=== PATIENT | female | born 1970 | race Caucasian/White ===

== ENCOUNTER → 2025-01-23 | Outpatient (CLI) | payer BC, SELFPAY ==
[2025-01-23 16:58] LABS: Amphetamine/Methamp Scrn,U Negative (Negative); Barbiturate Screen,Urine Negative (Negative); Benzodiazepines Screen,Urine Negative (Negative); Benzoylecgonine Screen, Ur Negative (Negative); Fentanyl Screen,Urine Negative (Negative); Opiate Screen,Urine Negative (Negative); THC Screen,Urine Negative (Negative)
== END | disposition home or self-care (01) ==
LOC: SLDO 14:45
PROVIDERS: PCP Family Medicine; Referring Provider Physician Assistant; Visit Provider Physician Assistant
DX: Z79.891 Long term (current) use of opiate analgesic (principal)
CPT/HCPCS: 80307

== ENCOUNTER → 2025-02-19 | Outpatient (CLI) | payer BC, SELFPAY ==
[2025-02-19 09:41] LABS: Alanine Aminotransferase 16 U/L (10-49); Albumin, Serum 4.1 gm/dL (3.5-5.0); Albumin/Globulin Ratio 2.1 (1.2-2.2); Alkaline Phosphatase 67 U/L (46-116); Anion Gap 8 (7-16); Aspartate Amino Transferase 20 U/L (0-34); BUN/Creatinine Ratio 12 Ratio (12-20); Bilirubin,Total 0.4 mg/dL (0.3-1.2); Blood Urea Nitrogen 11 mg/dL (9-23); Calcium 9.8 mg/dL (8.3-10.6); Calcium (Corrected) 9.8 mg/dL (8.5-10.1); Carbon Dioxide 27.5 mMol/L (20.0-31.0); Cardiac Risk Estimate 2.2 RATIO (3.7-5.6); Chloride 107 mMol/L (98-107); Cholesterol 161 mg/dL (132-200); Creatinine (Component) 0.9 mg/dL (0.6-1.3); Globulin 2.0 gm/dL (2.3-3.5); Glucose 103 mg/dL (74-106); HDL Cholesterol 74 mg/dL (40-60); LDL Cholesterol,Calculated 58 mg/dL (0-130); Osmolality,Calculated 282 (275-295); Potassium 5.0 mMol/L (3.4-5.1); Sodium 142 mMol/L (136-145); Total Protein 6.1 gm/dL (5.7-8.2); Triglycerides 143 mg/dL (30-150); eGFR > 60 See Note
== END | disposition home or self-care (01) ==
LOC: COPL 08:01
PROVIDERS: PCP Family Medicine; Referring Provider Physician Assistant; Visit Provider Physician Assistant
DX: I10 Essential (primary) hypertension (principal); E78.5 Hyperlipidemia, unspecified
CPT/HCPCS: 36415; 80053; 80061

== ENCOUNTER → 2025-04-10 | Outpatient (CLI) | payer BC, SELFPAY ==
[2025-04-10 09:40] LABS: Collection Type, Urine Clean Catch
[2025-04-10 09:52] LABS: Basophils # (Auto) 0.1 Thou/mm3 (0.0-0.2); Basophils % (Auto) 1 % (0-2.5); Eosinophils # (Auto) 0.2 Thou/mm3 (0.0-0.5); Eosinophils % (Auto) 4 % (0-10); Hematocrit 44.1 % (36.0-46.0); Hemoglobin 14.6 g/dL (12.0-16.0); Immature Granulocytes Auto 0.01 Thou/mm3 (0.00-0.00); Lymphocytes # (Auto) 1.9 Thou/mm3 (1.0-4.8); Lymphocytes % (Auto) 32 % (10-50); Mean Corpuscular HGB Conc 33.1 g/dl (31.0-37.0); Mean Corpuscular Hemoglobin 30.0 pg (25.0-35.0); Mean Corpuscular Volume 91 fL (80-100); Monocytes # (Auto) 0.5 Thou/mm3 (0.0-0.8); Monocytes % (Auto) 8 % (0-12); Neutrophils # (Auto) 3.3 Thou/mm3 (1.8-7.7); Neutrophils % (Auto) 56 % (37-80); Nucleated Red Blood Cell # 0.00 Thou/mm3 (0.00-0.00); Nucleated Red Blood Cell % 0 /100 WBC (0); Platelet Count 245 Thou/mm3 (140-440); RDW Standard Deviation 42.5 fL (36.4-46.3); Red Blood Count 4.86 Miln/mm3 (4.00-5.20); White Blood Count 6.0 Thou/mm3 (3.6-11.0)
[2025-04-10 10:06] LABS: Alanine Aminotransferase 19 U/L (10-49); Albumin, Serum 4.3 gm/dL (3.5-5.0); Albumin/Globulin Ratio 2.0 (1.2-2.2); Alkaline Phosphatase 54 U/L (46-116); Anion Gap 8 (7-16); Aspartate Amino Transferase 23 U/L (0-34); BUN/Creatinine Ratio 10 Ratio (12-20); Bilirubin,Total 0.5 mg/dL (0.3-1.2); Blood Urea Nitrogen 10 mg/dL (9-23); Calcium 9.5 mg/dL (8.3-10.6); Calcium (Corrected) 9.5 mg/dL (8.5-10.1); Carbon Dioxide 25.7 mMol/L (20.0-31.0); Cardiac Risk Estimate 3.2 RATIO (3.7-5.6); Chloride 107 mMol/L (98-107); Cholesterol 205 mg/dL (132-200); Creatinine (Component) 1.0 mg/dL (0.6-1.3); Globulin 2.2 gm/dL (2.3-3.5); Glucose 101 mg/dL (74-106); HDL Cholesterol 64 mg/dL (40-60); LDL Cholesterol,Calculated 117 mg/dL (0-130); Osmolality,Calculated 280 (275-295); Potassium 5.2 mMol/L (3.4-5.1); Sodium 141 mMol/L (136-145); Thyroid Stimulating Hormone 1.02 uIU/mL (0.55-4.78); Total Protein 6.5 gm/dL (5.7-8.2); Triglycerides 119 mg/dL (30-150); Vitamin B12 476 pg/mL (211-911); Vitamin D 25 Hydroxy Total 50.3 ng/mL (7.3-40.2); eGFR > 60 See Note
[2025-04-10 10:57] LABS: Bilirubin,Urine Negative (Negative); Blood,Urine Negative (Negative); Color,Urine Yellow (Lt Yel-Yel); Culture Indicated,Urine Not Indicated; Glucose, Urine Negative (Negative); Granular Casts,Urine 1 /hpf (0-1); Hyaline Casts,Urine 2 /hpf (0-1); Ketones,Urine 2+ (Negative); Leukocyte Esterase,Urine Positive (Negative); Nitrite,Urine Negative (Negative); PH,Urine 6.5 (5.0-7.0); Protein,Urine 1+ (Neg - Trace); RBC,Urine 2 /hpf (0-3); Specific Gravity,Urine 1.028 (1.001-1.035); Squamous Epithelial Cell,Urine 47 /hpf (0-5); Urobilinogen,Urine Negative mg/dL (0.0-1.0); WBC,Urine 2 /hpf (0-5)
[2025-04-10 11:10] LABS: Clarity,Urine Hazy (Clear/Hazy)
== END | disposition home or self-care (01) ==
LOC: COPL 09:02
PROVIDERS: PCP Physician Assistant; Referring Provider Physician Assistant; Visit Provider Physician Assistant
DX: I10 Essential (primary) hypertension (principal); E78.5 Hyperlipidemia, unspecified; E55.9 Vitamin D deficiency, unspecified
CPT/HCPCS: 36415; 80053; 80061; 81001; 82306; 82607; 84443; 85025

== ENCOUNTER → 2025-04-19 | Outpatient (CLI) | payer BC, SELFPAY ==
[2025-04-19 11:15] LABS: Alanine Aminotransferase 14 U/L (10-49); Albumin, Serum 4.3 gm/dL (3.5-5.0); Albumin/Globulin Ratio 1.9 (1.2-2.2); Alkaline Phosphatase 58 U/L (46-116); Anion Gap 9 (7-16); Aspartate Amino Transferase 21 U/L (0-34); BUN/Creatinine Ratio 12 Ratio (12-20); Bilirubin,Total 0.5 mg/dL (0.3-1.2); Blood Urea Nitrogen 12 mg/dL (9-23); Calcium 9.4 mg/dL (8.3-10.6); Calcium (Corrected) 9.4 mg/dL (8.5-10.1); Carbon Dioxide 26.3 mMol/L (20.0-31.0); Chloride 105 mMol/L (98-107); Creatinine (Component) 1.0 mg/dL (0.6-1.3); Globulin 2.3 gm/dL (2.3-3.5); Glucose 104 mg/dL (74-106); Osmolality,Calculated 279 (275-295); Potassium 4.7 mMol/L (3.4-5.1); Sodium 140 mMol/L (136-145); Total Protein 6.6 gm/dL (5.7-8.2); eGFR > 60 See Note
== END | disposition home or self-care (01) ==
LOC: COPL 09:26
PROVIDERS: PCP Family Medicine; Referring Provider Physician Assistant; Visit Provider Physician Assistant
DX: E87.5 Hyperkalemia (principal)
CPT/HCPCS: 36415; 80053

== ENCOUNTER → 2025-06-04 | Outpatient (CLI) | payer BC, SELFPAY ==
--- NOTE | 2025-06-04 13:20 | XR_ITS ---
Examination: Bone densitometry Date and time of exam: June 04, 2025, 1355 hours INDICATIONS: Hyste[age] age [age] years Technique: Lumbar spine and hip total bone mineralization values of an calculated. Peak reference and age match control results have been displayed. Findings: Lumbar spine total bone mineralization is 1.257 gm/cm2. This is 1.9 standard deviations above peak reference. This is 2.9 standard deviations above age-matched controls. Hip total bone mineralization is 1.063 gm/cm2 This is 1.0 standard deviations above peak reference. This is 1.6 standard deviations above age-matched controls Impression: There is normal mineralization based on lumbar spine measurements. There is normal mineralization based on hip measurements
--- NOTE | 2025-06-04 13:40 | XR_ITS ---
Examination: Screening digital mammography, bilateral Computer aided detection 3-D breast Tomosynthesis, bilateral Date and time of exam: June 04, 2025, 1329 hours, no priors Indication: Screening Technique: Nonmagnified MLO, CC views of the breasts to been obtained, reconstructed from 3-D Tomosynthesis images. R2 computer aided detection program utilized for evaluation of suspicious masses and/or abnormal calcifications. 3-D Tomosynthesis images obtained. Findings: The breasts are heterogeneously dense, which may obscure small masses 6 mm nodule partially indistinct margins upper outer right breast mid to posterior depth 7 mm nodule indistinct margins retroareolar region left breast with adjacent breast biopsy marker Impression: BI-RADS Category 0: Incomplete: Need additional imaging evaluation Recommend follow-up spot tomographic views of 6 mm nodule upper outer right breast and 7 mm nodule retroareolar region left breast as well as bilateral breast sonography to complete the work-up
== END | disposition home or self-care (01) ==
LOC: CDIM 13:13
PROVIDERS: Referring Provider Physician Assistant; Visit Provider Physician Assistant
DX: Z12.31 Encounter for screening mammogram for malignant neoplasm of breast (principal); R92.8 Other abnormal and inconclusive findings on diagnostic imaging of breast; N63.11 Unspecified lump in the right breast, upper outer quadrant; N63.42 Unspecified lump in left breast, subareolar; Z13.820 Encounter for screening for osteoporosis
CPT/HCPCS: 77063; 77067; 77080